=== PATIENT | male | born 1945 | race Caucasian/White ===

== ENCOUNTER 2016-12-30 15:40 | Inpatient (IN) | payer MEDICARE, MEDICAID ==
[2016-12-30 16:43] VITALS: BP 130/80
[2016-12-30 17:55] LABS: % EOSINOPHILS 3.1 % (0.0-5.0); % LYMPHOCYTES 15.6 % (20.0-50.0); % MONOCYTES 12.3 % (2.0-10.0); HEMATOCRIT 38.9 % (39.0-49.0); HEMOGLOBIN 13.6 gm/dL (12.6-17.4); MEAN CELL VOLUME 88.9 fl (80-99); MEAN CORPUSCULAR HGB CONC 34.9 pg (28.0-36.0); MEAN PLATELET VOLUME 7.3 fl; PLATELET COUNT 237 Th/cmm (150-400); RED BLOOD COUNT 4.38 Mil/cmm (3.80-5.80); RED CELL DISTRIBUTION WIDTH 13.7 % (11.5-20.0); WHITE BLOOD COUNT 6.1 Th/cmm (4.8-10.8)
[2016-12-30 18:05] LABS: ALB/GLOB RATIO 1.2 (1.0-1.8); ALKALINE PHOSPHATASE 68 U/L (34-104); ANION GAP 7.2 (7.0-16.0); BILIRUBIN,TOTAL 0.6 mg/dL (0.3-1.0); BUN - UREA NITROGEN 26 mg/dL (7-25); BUN/CREATININE RATIO 37.1; CALCIUM SERUM 9.4 mg/dL (8.6-10.3); CARBON DIOXIDE 27.9 mEq/L (21.0-31.0); CHLORIDE 103 mEq/L (98-107); CREATININE - SERUM 0.7 mg/dL (0.7-1.3); GLUCOSE 97 mg/dL (70-105); POTASSIUM SERUM 4.1 mEq/L (3.5-5.1); SGOT 21 U/L (13-39); SGPT/ALT 30 U/L (7-52); SODIUM SERUM 134 mEq/L (136-145)
[2016-12-30 19:37] LABS: URINE BILIRUBIN NEGATIVE (NEGATIVE); URINE COLOR STRAW; URINE GLUCOSE (UA) NEGATIVE (NEGATIVE); URINE KETONE NEGATIVE (NEGATIVE)
[2016-12-30 19:38] LABS: URINE BLOOD LARGE (NEGATIVE); URINE PH 7.5; URINE PROTEIN NEGATIVE (NEGATIVE); URINE RBC >100 /hpf (0-5); URINE UROBILINOGEN 0.2 E.U./dL (0.2 - 1.0)
[2016-12-30 19:39] LABS: URINE BACTERIA NONE SEEN /hpf (NONE SEEN); URINE EPITHELIAL CELLS FEW /lpf (FEW); URINE WBC 0-2 /hpf (0-5)
--- NOTE | 2016-12-30 20:52 | ED Physician Chart ---
Chief Complaint/HPI - Patient Information Date Seen:: 12/30/16 Time Seen:: 15:55 Chief Complaint:: abdominal pain History of Present Illness:: 71-year-old male with severe intellectual disability of presents with apparent acute, worsening, constant, abdominal pain that started about 1 day prior. Patient was brought to a CT scanner as an outpatient and was discovered that he has a large diaphragmatic hernia. History limited as patient has severe underlying intellectual handicap History provided by EMS Allergies:: Allergies Allergy/AdvReac Type Severity Reaction Status Date / Time No Known Allergies Allergy Verified 12/30/16 16:29 Vitals:: Vital Signs - 8 hr 12/30/16 12/30/16 12/30/16 16:42 18:36 19:25 Temp 97.7 F HR 74 73 RR 16 18 BP 130/80 132/74 124/82 O2 Sat % 97 97 Historian:: EMS Review:: Nurse's Note Reviewed, EMS run form Reviewed Review of Systems - Review of Systems Other: Complete system review otherwise unremarkable except as noted in HPI. Past Medical History - Past Medical History Past Medical History: Other (encephalopathy, nonverbal, profound intellectual disability) Family Medical History - Family Member Mother Hx Family Cancer: No Hx Family Coronary Artery Disease: No Hx Family Hypertension: No Hx Family Stroke: No Hx Family Seizures: No Hx Family AIDS: No Hx Family HIV: No Hx Family Hepatitis: No Physical Exam - Physical Examination Other:: INITIAL VITAL SIGNS: Reviewed by me GENERAL: Patient is lying on gurney, alert but averbal HEAD: Head is normocephalic. No evidence of trauma. No scalp or facial swelling EYES: No scleral icterus bilaterally ENT: Oropharynx is clear of exudate and erythema NECK: Supple. No meningismus. No masses. No evidence of trauma. No cervical spine bony step-offs or crepitus to palpation RESPIRATORY: No tachypnea. Clear to auscultation bilaterally. CV: Regular rate and rhythm. No murmurs, rubs, or gallops ABDOMEN: Soft, non-distended. No masses BACK: No ecchymoses. No evidence of trauma EXTREMITIES: Normal to inspection and palpation. No deformity SKIN: Warm and dry. No obvious rash. No jaundice NEUROLOGIC: Face is symmetric. Withdraws to pain in all extremities Labs/Radiology/EKG Results - Lab Results Results: Laboratory Tests 12/30/16 12/30/16 12/30/16 17:35 17:35 19:05 WBC 6.1 RBC 4.38 Hgb 13.6 Hct 38.9 L MCV 88.9 MCH 31.0 MCHC Differential 34.9 RDW 13.7 Plt Count 237 MPV 7.3 Neutrophils % 68.0 Lymphocytes % 15.6 L Monocytes % 12.3 H Eosinophils % 3.1 Basophils % 1.0 Sodium 134 L Potassium 4.1 Chloride 103 Carbon Dioxide 27.9 Anion Gap 7.2 BUN 26 H Creatinine 0.7 Est GFR ( Amer) > 60.0 Est GFR (Non-Af Amer) > 60.0 BUN/Creatinine Ratio 37.1 Glucose 97 Calcium 9.4 Total Bilirubin 0.6 AST 21 ALT 30 Alkaline Phosphatase 68 Total Protein 7.1 Albumin 3.9 L Globulin 3.2 Albumin/Globulin Ratio 1.2 Urine Source CES[place] Urine Color STRAW Urine Clarity HAZY Urine pH 7.5 Ur Specific [place] 1.015 Urine Protein NEGATIVE Urine Glucose (UA) NEGATIVE Urine Ketones NEGATIVE Urine Blood LARGE H Urine Nitrate NEGATIVE Urine Bilirubin NEGATIVE Urine Urobilinogen 0.2 Ur Leukocyte Esterase NEGATIVE Urine RBC >100 H Urine WBC 0-2 Ur Epithelial Cells FEW Urine Bacteria NONE SEEN ED Septic Shock - . Is Septic Shock (SBP<90, OR Lactate>4 mmol\L) present?: No - <6hrs of presentation: Vital Signs: Vital Signs - 8 hr 12/30/16 12/30/16 12/30/16 16:42 18:36 19:25 Temp 97.7 F HR 74 73 RR 16 18 BP 130/80 132/74 124/82 O2 Sat % 97 97 Reassessment (Disposition) - Reassessment Reassessment:: The patient's blood pressure was elevated (>120/80) but appears stable without evidence of hypertensive emergency or urgency. The patient was counseled about the risks hypertension urged to pursue outpatient monitoring and therapy within a week with her primary care physician. Patient has had apparent intractable abdominal pain. Because the patient is averbal and severely intellectually challenged it is difficult to obtain any reasonable history. Also very difficult to obtain a good clinical exam. Discussed the case in detail with Dr. Inman. He will admit the patient for further workup and treatment. Reassessment Condition:: Unchanged - Diagnosis Diagnosis:: Intractable abdominal pain Diaphragmatic hernia Encephalopathy Elevated blood pressure without diagnosis of hypertension - Patient Disposition Discharge/Transfer:: Acute Care w/in this hosp Admitted to:: Med/Surg Admitting Medical Physician:: Adrianne Inman Time:: 19:00 Condition at Disposition:: Improved ED Discharge Plan - Patient Disposition Admit/Discharge/Transfer: Acute Care w/in this hosp
--- NOTE | 2016-12-30 21:47 | Admit Criteria Form ---
Admit Criteria Forms - Admit Criteria Diagnosis: ABDOMINAL PAIN Clinical Indications for Admission to Inpatient Care (Place 'X' for any and all applicable criteria): Admission is indicated for ANY ONE of the following(1)(2)(3)(4)(5): [X]I. Inpatient admission required rather than observation care (Also use Abdominal Pain: Observation Care, as appropriate) because of ANY ONE of the following: [X]a) Severe pain requiring acute inpatient management [X]b) Identification of etiology/finding that requires inpatient care (eg, aortic dissection, free air) [ ]c) Absent bowel sounds with complete ileus(6) [ ]d) Suspected toxic megacolon [ ]e) Severe electrolyte abnormalities requiring inpatient care [ ]f) High fever or infection requiring inpatient admission as indicated by ANY ONE of following(7)(8): [ ] i) Appropriate outpatient or observational care antimicrobial treatment unavailable, not effective, or not feasible [ ] ii) Documented bacteremia [ ] iii) Temperature > 104.9 degrees F (oral) [ ] iv) T >103.1 F (oral) or < 96.8 F(rectal) that does not respond to all emergency treatment measures [ ]g) Signs of intestinal obstruction [B] [ ]h) Hemodynamic instability [ ]i) IV fluid to replace significant ongoing losses (greater than 3 L/m2 per day) (12)(13) [ ]j) Percutaneous or open drainage (eg, abscess, biliary tract ) procedures [ ]k) Parenteral nutrition regimen that must be implemented on inpatient basis [ ]l) Other condition,treatment or monitoring requiring inpatient admission. [ ]II. Peritoneal signs present [ ]III. Surgery needed that cannot be performed on an ambulatory basis. [ ]IV. Evaluation requires patient to not eat or drink for extended period ( eg, more than 24 hours). [ ]V. Contraindications and/or Inappropriate clinical situations for Observational Care in patients with abdominal pain, when ANY ONE of the following is required: [ ]a) Thorough evaluation is required to prevent catastrophic events due to delays in diagnosing (e.g.Mesenteric ischemia) 1,3 [ ]b) Patient with severe pathology or with chronic symptoms unlikely to improve in the ED stay (3) [ ]. General contraindications and/or Inappropriate clinical situations for Observational Care in patients with abdominal pain, when ANY ONE of the following is required: [ ]a) Prediction of prolongation of LOS based on ANY ONE of the following may be considered as a contraindication for observational care 2, 3, 4, 5, 6, 7, 8, 9, 10, 11 [ ]i) Age > 65 yrs. [ ]ii) Patient arriving by ambulance [ ]iii) Patient with high acuity [ ]iv) Patient requiring vital sign monitoring [ ]v) Patient on IV medication [ ]b) Systolic blood pressures 180mmHg 3,12 [ ]c) Patient with altered mental status including delirium and other alteration of consciousness, (3) [ ]d) Patient whose discharge disposition will be to a halfway home or rehabilitation home should not be managed in Emergency Department Observation Unit. CMS rule requires 3 days hospital stay before such placement.3,13 [ ]e) Patient with failure to thrive due to broad array of etiologies 3,16,17 [ ]f) Inability to ambulate 3,14 Extended stay beyond goal length of stay may be needed for(2)(3): [ ]a) Persistent abdominal pain with suspected intra-abdominal process [ ]b) Diagnosed condition requiring continued stay (e.g., pancreatitis, complicated diverticulitis) [ ]c) Surgery (e.g., colectomy) The original [employer] content created by [employer] has been revised. The portions of the content which have been revised are identified through the use of italic text or in bold, and [facility] has neither reviewed nor approved the modified material.All other unmodified content is copyright [facility]. Please see references footnoted in the original [facility] edition 2016 Admit Criteria Met?: Yes
[2016-12-31] MEDS: D5-0.45NS 1,000 ML IV SCH (05:53)
[2016-12-31] MEDS: Metoclopramide 5 mg/mL 2mL Vial IVP SCH ×2 (06:36→22:35)
[2016-12-31 07:59] LABS: HEMOGLOBIN 14.4 gm/dL (12.6-17.4); MEAN CELL VOLUME 89.9 fl (80-99); MEAN CORPUSCULAR HGB CONC 33.3 pg (28.0-36.0); MEAN PLATELET VOLUME 7.4 fl; PLATELET COUNT 213 Th/cmm (150-400); RED CELL DISTRIBUTION WIDTH 13.5 % (11.5-20.0)
[2016-12-31 08:04] LABS: HEMATOCRIT 43.1 % (39.0-49.0); WHITE BLOOD COUNT 9.7 Th/cmm (4.8-10.8)
[2016-12-31 08:17] LABS: INR 1.04 (0.5-1.4); PROTHROMBIN TIME (TEST) 10.3 SECONDS (9.5-11.5)
[2016-12-31 08:18] LABS: ALB/GLOB RATIO 1.1 (1.0-1.8); ALKALINE PHOSPHATASE 89 U/L (34-104); ANION GAP 7.7 (7.0-16.0); BILIRUBIN,TOTAL 1.3 mg/dL (0.3-1.0); BUN - UREA NITROGEN 19 mg/dL (7-25); CALCIUM SERUM 9.5 mg/dL (8.6-10.3); CARBON DIOXIDE 25.1 mEq/L (21.0-31.0); CHLORIDE 104 mEq/L (98-107); CREATININE - SERUM 0.5 mg/dL (0.7-1.3); GLUCOSE 93 mg/dL (70-105); MAGNESIUM 2.1 mg/dL (1.9-2.7); POTASSIUM SERUM 3.8 mEq/L (3.5-5.1); SGOT 23 U/L (13-39); SGPT/ALT 29 U/L (7-52); SODIUM SERUM 133 mEq/L (136-145)
[2016-12-31 09:19] LABS: BAND NEUTROPHILE 5 % (0-10); EOSINOPHIL 2 % (0-5); NEUTROPHILS 74 % (40-80); PLATELET ESTIMATE ADEQUATE (NORMAL); PLATELET MORPHOLOGY GIANT PLATELETS SEEN (NORMAL); TOTAL CELLS COUNTED 100
[2016-12-31] MEDS: Multivitamin w/ Minerals Tab PO SCH (09:39)
[2016-12-31] MEDS: Fish Oil 1,000 MG SGL PO SCH (09:39)
--- NOTE | 2016-12-31 12:00 | Diagnostic Imaging Report ---
CHEST X-RAY: AP view INDICATION: Pneumonia COMPARISON: None FINDINGS: Focal left midlung opacity is noted. There may be a hiatal hernia. Chronic lung changes are noted. No effusions. No definite pneumothorax. Heart size normal. Degenerative changes are noted with scoliosis. IMPRESSION: Focal left midlung opacity which may be due to atelectasis versus infiltrate. There may also be a hiatal hernia. Recommend short-term follow-up CT examination for further assessment of these findings. Final results were administered to the referring team on 12/31/2016.
[2016-12-31] MEDS ORDERED: Diatrizoate Meglumine/Diatri 30 mL Sol PO ONE (12:31)
--- NOTE | 2016-12-31 14:59 | History & Physical ---
CHIEF COMPLAINT: Intractable lower abdominal pain. HISTORY OF PRESENT ILLNESS: This is a 71-year-old male, resident of a [facility], with history of profound intellectual disability, spastic quadriplegia, chronic encephalopathy, BPH, legally blind, who was transferred to the ER secondary to intractable abdominal pain for the last days. The patient had a CT of the abdomen as an outpatient showing a large eventration versus hernia of the left hemidiaphragm continued in the stomach and multiple loops of small and large bowel. There is severe fecal retention of the colon with constipation. The patient now has been admitted to the medical floor for GI and surgical evals. The patient is non-conversive, but there is no reported fever, chills, nausea or vomiting. PAST MEDICAL HISTORY: As noted above. PAST SURGICAL HISTORY: Unknown, but there is no noted recent surgeries. FAMILY HISTORY: Unknown, but likely noncontributory. SOCIAL HISTORY: Per notes, no tobacco, ETOH, or illicit drug usage, lives in [facility]. ALLERGIES: NKDA. OUTPATIENT MEDICATIONS: Tylenol 325 q. 4 p.r.n. for pain, bisacodyl 10 mg suppository per rectum every day, Proscar 5 every day, multivitamins every day, omega-3 one capsule each day and Risperdal 0.5 b.i.d. REVIEW OF SYSTEMS: Not able to be obtained given the patient's mental condition. PHYSICAL EXAMINATION: VITAL SIGNS: Temperature 97.2, pulse 84, respirations 18, BP 146/82, satting 98% on room air. GENERAL: He is a well-nourished mentally disabled gentleman currently lying in bed in position. HEAD AND NECK: He is normocephalic, atraumatic. NECK: There is no JVD or LAD. CARDIOVASCULAR: Regular rate and rhythm. LUNGS: Decreased at the bases, but clear to auscultation bilaterally. ABDOMEN: He is mildly distended, somewhat rigid with mild tenderness to palpation diffusely, but more pronounced in the lower quadrants. There are hypoactive bowel sounds. LOWER EXTREMITIES: No pedal edema. LABORATORY DATA: Sodium 134, potassium 4.1, BUN 26 and albumin 3.9, otherwise LFTs and chemistries were within normal limits. INR is 1.04. White count 6.1, H and H 13/38. UA shows large blood and over 100 rbc's, but nitrite negative and leukocyte esterase negative. DIAGNOSTICS: Refer to HPI. IMPRESSION: 1. Intractable abdominal pain secondary to large diaphragmatic hernia. 2. Severe fecal impaction/retention and slight constipation. 3. Mild hyponatremia. 4. Azotemia 5. History of chronic encephalopathy secondary to mental retardation. 6. History of benign prostatic hypertrophy. PLAN: The patient has been admitted to the medical/surgical floor for further management and care. He has been placed on IV fluids and antiemetics as well as pain medications. GI and General Surgical eval had been asked for. He will be also placed on Protonix and Reglan IV and his medications will be held until his symptoms improved. [facility]# [id number]
--- NOTE | 2016-12-31 15:54 | Diagnostic Imaging Report ---
KUB History: Abdominal pain Comparison: None Findings: A percutaneous feeding tube is noted. Copious stool is seen throughout the colon with gaseous filled loops of bowel. Degenerative changes of the spine are noted. IMPRESSION: Copious amount of stool. Please correlate clinically for constipation.
[2016-12-31] MEDS ORDERED: Albuterol/Ipratropium Neb 3 ML AERS HHN PRN (16:45)
[2016-12-31] MEDS: Albuterol/Ipratropium Neb 3 ML AERS HHN SCH ×2 (19:38→23:28)
[2016-12-31] MEDS ORDERED: Magnesium Citrate 1.75 GM/300 mL Bottle PO ONE (20:23)
--- NOTE | 2016-12-31 21:59 | Consultation ---
GASTROENTEROLOGY CONSULTATION: REFERRING PHYSICIAN: Adrianne Inman M.D. REASON FOR CONSULTATION: Abdominal pain. HISTORY OF PRESENT ILLNESS: A 71-year-old male, mentally challenged, admitted for vague abdominal pain. He is a poor historian and further history was obtained from medical chart and computer records. There is a question of a previous large hiatal hernia in the past. The patient has no witnessed nausea or vomiting at this point. There was no reported diarrhea or constipation. PAST MEDICAL HISTORY: As above, notable for profound intellectual disability, spastic quadriplegia, chronic encephalopathy, BPH, legally blind. PAST MEDICAL HISTORY: As above. PAST SURGICAL HISTORY: Unknown. FAMILY HISTORY: Noncontributory. SOCIAL HISTORY: Board and care resident. No known tobacco, alcohol or drugs. ALLERGIES: None. MEDICATIONS: Here are Tylenol as needed, DuoNeb nebulizer as needed, azithromycin, Dulcolax as needed, Rocephin, Proscar, intravenous fluids, [place] 3, Ativan, Reglan 5 mg intravenous 4 times a day, intravenous Protonix and Risperdal. REVIEW OF SYSTEMS: As per History of Present Illness, otherwise unobtainable. PHYSICAL EXAMINATION: VITAL SIGNS: Temperature 97.5, blood pressure 141/79, pulse of 94, respirations 20. GENERAL: The patient is a well-developed, well-nourished male, in no acute distress. HEENT: Sclerae are nonicteric. Oropharynx is clear. CARDIOVASCULAR: Regular rate and rhythm. LUNGS: Clear to auscultation bilaterally. ABDOMEN: Soft, nontender, nondistended. Normoactive bowel sounds. EXTREMITIES: No clubbing, cyanosis or edema. RECTAL: Deferred. LABORATORY DATA AND IMAGING: Complete blood count is normal. Coagulation profile is normal. Chemistries are normal except for bilirubin mildly elevated to 1.3, albumin 3.9. Urinalysis shows large blood and greater than 100 rbc's. KUB shows copious stool. IMPRESSION: 1. Vague abdominal pain, unclear source, could be large hiatal hernia, could be constipation, could be a renal stone or renal colic given hematuria. 2. Hematuria, cause to be determined. 3. Mental retardation. RECOMMENDATIONS: 1. Upper endoscopy in the morning. 2. Protonix. 3. Check CT of the abdomen and pelvis. 4. Consider Urology evaluation for further evaluation of hematuria. Thank you, Dr. Inman, for involving us in the care of your patient. If you have any further questions, please call us. JOB# [id number]
[2017-01-01] MEDS: Albuterol/Ipratropium Neb 3 ML AERS HHN SCH ×6 (03:12→23:17)
[2017-01-01 06:42] LABS: % BASOPHILS 1.1 % (0.0-2.0); % EOSINOPHILS 0.2 % (0.0-5.0); % LYMPHOCYTES 10.3 % (20.0-50.0); % MONOCYTES 10.4 % (2.0-10.0); HEMATOCRIT 39.8 % (39.0-49.0); HEMOGLOBIN 13.7 gm/dL (12.6-17.4); MEAN CELL VOLUME 88.1 fl (80-99); MEAN CORPUSCULAR HEMOGLOBIN 30.4 pg (27.0-31.0); MEAN CORPUSCULAR HGB CONC 34.5 pg (28.0-36.0); MEAN PLATELET VOLUME 7.6 fl; NEUTROPHILE ABSOLUTE 5.1 Th/cmm (1.8-8.0); PLATELET COUNT 225 Th/cmm (150-400); RED BLOOD COUNT 4.52 Mil/cmm (3.80-5.80); RED CELL DISTRIBUTION WIDTH 13.6 % (11.5-20.0)
[2017-01-01 07:00] LABS: WHITE BLOOD COUNT 6.6 Th/cmm (4.8-10.8)
[2017-01-01 07:10] LABS: ANION GAP 15.3 (7.0-16.0); BUN - UREA NITROGEN 14 mg/dL (7-25); CALCIUM SERUM 9.5 mg/dL (8.6-10.3); CARBON DIOXIDE 26.7 mEq/L (21.0-31.0); CHLORIDE 95 mEq/L (98-107); CREATININE - SERUM 0.5 mg/dL (0.7-1.3); GLUCOSE 93 mg/dL (70-105); SODIUM SERUM 133 mEq/L (136-145)
[2017-01-01 08:09] LABS: INR 1.04 (0.5-1.4); PROTHROMBIN TIME (TEST) 10.3 SECONDS (9.5-11.5)
[2017-01-01] MEDS: Multivitamin w/ Minerals Tab PO SCH (09:16)
[2017-01-01] MEDS: Fish Oil 1,000 MG SGL PO SCH (09:16)
[2017-01-01] MEDS: Metoclopramide 5 mg/mL 2mL Vial IVP SCH ×5 (09:17→21:05)
--- NOTE | 2017-01-01 09:17 | Diagnostic Imaging Report ---
CHEST X-RAY: AP view INDICATION: pain COMPARISON: 12/30/2016 FINDINGS: There is probable large hiatal hernia. Increased bibasilar lung markings are noted. No focal consolidation. Heart size is normal. IMPRESSION: Probable large hiatal hernia. CT would provide additional detail and assessment Increased bibasilar lung markings favoring atelectasis. No focal consolidation is identified.
--- NOTE | 2017-01-01 13:04 | Operative Report ---
PROCEDURE: Esophagogastroduodenoscopy with biopsy. PREOPERATIVE DIAGNOSIS: Abdominal pain. POSTPROCEDURE DIAGNOSES: 1. Moderate to large 6 cm hiatal hernia. 2. Mild gastritis, status post biopsy and CLOtest. 3. Normal appearing duodenum, status post biopsy, rule out celiac disease. INDICATION: A 71-year-old mentally challenged male admitted for vague abdominal pain. KUB showed constipation and upper endoscopy is planned today for evaluation of peptic ulcer disease or possible hiatal hernia. CONSENT: Informed consent was obtained from the patient's conservator prior to procedure after explaining risks, benefits and alternatives including but not limited to infection, bleeding, perforation and . SEDATION: Monitored anesthesia care per Dr. Lebron. DESCRIPTION OF PROCEDURE AND FINDINGS: The procedure took place as an inpatient in the GI suite of [facility]. The patient was kept in the left lateral decubitus position. Adequate sedation was achieved by Dr. Lebron. An Olympus diagnostic upper endoscope was advanced via the patient's mouth and into the esophagus. The esophagus appeared normal with the Z line normal appearing at about 38-39 cm from the gums. A moderate to large hiatal hernia was then entered and the diaphragmatic pinch was at 44 cm from the gums. Retroflexion in the stomach confirmed the presence of a moderate to large hiatal hernia. No GE junction masses or varices were identified. Mild gastritis was identified in the antrum, but biopsies were obtained from antrum and mid body and submitted for CLOtest as well as pathology. The pyloric channel and duodenum up to second portion appeared normal. Random biopsies were obtained from second portion to rule out celiac disease. The scope was then withdrawn from the patient. The patient tolerated the procedure well. No complications are anticipated. RECOMMENDATIONS: 1. Follow up biopsy results. 2. Protonix. 3. Stool softeners. 4. Await CT of the abdomen and pelvis. 5. Diet as tolerated after CT imaging. Thank you, Dr. Adrianne Inman for involving us in the care of your patient. If any further questions, please call us. JOB# [id number] [facility]
--- NOTE | 2017-01-01 15:33 | Consultation ---
REFERRING PHYSICIAN: Dr. Inman. REASON FOR CONSULTATION: Abdominal pain. Thank you for referring this patient to me. HISTORY OF PRESENT ILLNESS: This is a 71-year-old male who comes in from the group home, but is unable to give any information, ____ is totally uncooperative and refuses to cooperate. Has history of mental disability, quadriplegia, chronic encephalopathy and is legally blind. Through the Emergency Room, it is noted that the patient apparently has hiatal hernia and may be the cause of his problems. There is no documented history of vomiting on this patient. LABORATORY STUDIES: The CBC is essentially normal. The chemistry, BUN slightly elevated to 26. The KUB shows copious amount of stool and otherwise no mention of chest opacity to indicate large portion of the stomach in the chest. PHYSICAL EXAMINATION: Right now is possible. GI evaluation is necessary with EGD to find out the extent of the hiatal hernia. Thank you for this consultation. We will follow with you. [facility]# [id number]
[2017-01-01] MEDS: D5-0.45NS 1,000 ML IV SCH ×2 (16:23→16:24)
[2017-01-02] MEDS: Albuterol/Ipratropium Neb 3 ML AERS HHN SCH ×6 (03:14→23:10)
[2017-01-02] MEDS: D5-0.45NS 1,000 ML IV SCH (05:21)
[2017-01-02 07:08] LABS: % BASOPHILS 0.4 % (0.0-2.0); % EOSINOPHILS 1.2 % (0.0-5.0); % MONOCYTES 11.7 % (2.0-10.0); % NEUTROPHILS 70.7 % (40.0-80.0); HEMATOCRIT 40.4 % (39.0-49.0); HEMOGLOBIN 13.8 gm/dL (12.6-17.4); MEAN CELL VOLUME 89.4 fl (80-99); MEAN CORPUSCULAR HEMOGLOBIN 30.5 pg (27.0-31.0); MEAN CORPUSCULAR HGB CONC 34.1 pg (28.0-36.0); NEUTROPHILE ABSOLUTE 4.3 Th/cmm (1.8-8.0); PLATELET COUNT 239 Th/cmm (150-400); RED BLOOD COUNT 4.52 Mil/cmm (3.80-5.80); RED CELL DISTRIBUTION WIDTH 13.6 % (11.5-20.0); WHITE BLOOD COUNT 6.1 Th/cmm (4.8-10.8)
[2017-01-02] MEDS: Metoclopramide 5 mg/mL 2mL Vial IVP SCH ×2 (07:11→11:21)
[2017-01-02 07:26] LABS: ANION GAP 10.3 (7.0-16.0); BUN - UREA NITROGEN 15 mg/dL (7-25); CALCIUM SERUM 9.2 mg/dL (8.6-10.3); CARBON DIOXIDE 25.5 mEq/L (21.0-31.0); CHLORIDE 101 mEq/L (98-107); CREATININE - SERUM 0.6 mg/dL (0.7-1.3); GLUCOSE 92 mg/dL (70-105); POTASSIUM SERUM 3.8 mEq/L (3.5-5.1); SODIUM SERUM 133 mEq/L (136-145)
[2017-01-02] MEDS: Multivitamin w/ Minerals Tab PO SCH (08:36)
[2017-01-02] MEDS: Fish Oil 1,000 MG SGL PO SCH (08:36)
--- NOTE | 2017-01-02 11:14 | Pathology Report ---
[id number] Collection Date: 01/01/2017 Surgeon: Dr. Cheri Forbes Specimen Description: 1: Duodenum biopsy. 2: Antrum biopsy. Gross Description: Part I: Received in formalin is a single marrero soft tissue fragment measuring 0.2 cm in greatest dimension. Totally submitted in one cassette labeled A. Gross Description: Part II: Received in formalin are three marrero soft tissue fragments ranging from 0.1 to 0.2 cm in greatest dimension. Totally submitted in one cassette labeled B. Microscopic Description: Part I: The histologic sections show duodenal mucosa with intact intestinal villi, with no evidence for any significant structural abnormalities. Diagnosis: Part I: No evidence for celiac disease / Sprue (duodenal biopsy). Microscopic Description: Part II: The histologic sections show gastric mucosa with mild chronic inflammation present consisting of lymphocytes and plasma cells. The Giemsa stain shows no evidence for Helicobacter Pylori. Diagnosis: Part II: 1. Mild chronic gastritis, antrum biopsy. 2. The Giemsa stain is negative for Helicobacter Pylori. [facility]# [id number] [facility]
--- NOTE | 2017-01-02 13:15 | Diagnostic Imaging Report ---
CT scan abdomen and pelvis without intravenous contrast HISTORY: Pain Total DLP equals 412 CTDI equals 8.5 Axial sections were obtained from the xiphoid process down to the pubic symphysis. Limited sections of the lower chest demonstrate elevation of the left hemidiaphragm. Air-filled mildly dilated large bowel extends into the left retrocardiac region. The lower most portion of the left chest is off the [id number]. The colon appears to be beneath the left hemidiaphragm. However, a dedicated CT scan of the chest would confirm. The liver exhibits a homogeneous parenchyma. No focal lesions. The spleen appears normal. No focal abnormality seen in the region of the pancreas. No focal renal lesions. The exam of the pelvis demonstrates preservation of normal fat planes. No abnormal soft tissue masses or abnormal fluid collections. Mildly dilated stool-filled large bowel suggesting changes of constipation noted. IMPRESSION: 1. Mildly dilated stool-filled large bowel suggesting changes associated with constipation 2. Elevation of the left hemidiaphragm. Air-filled large bowel projects and extends into the left retrocardiac region and appears to be beneath the diaphragm. This is partially off the [id number] of the exam. A dedicated CT scan of the chest would provide additional evaluation.
--- NOTE | 2017-01-02 13:21 | Diagnostic Imaging Report ---
Abdominal ultrasound (limited, gallbladder) HISTORY: Pain Limited images of the gallbladder provided. The exam is very limited due to patient's size, body habitus, bowel gas, and patient combativeness No definite intraluminal abnormalities are seen. Specifically, no definite calculi. There is suggestion of a small amount of pericholecystic fluid. Significance should be correlated clinically. IMPRESSION: 1. Very limited exam due to patient size, body habitus, bowel gas, and patient combativeness 2. No definite intraluminal abnormality/gallstones visualized. 3. Suggestion of minimal pericholecystic fluid. Significance should be correlated clinically.
[2017-01-02] MEDS ORDERED: Metoclopramide 5 mg/mL 2mL Vial IVP PRN (13:58)
--- NOTE | 2017-01-02 18:24 | General Progress Note ---
Subjective - Review of Systems Service Date: 01/02/17 Subjective: EVENTS NOTED. SULY ORAL DIET WELL. Objective - Results Result Diagrams: 01/02/17 06:46 01/02/17 06:46 Recent Labs: Laboratory Last Values WBC 6.1 Th/cmm (4.8-10.8) 01/02/17 06:46 RBC 4.52 Mil/cmm (3.80-5.80) 01/02/17 06:46 Hgb 13.8 gm/dL (12.6-17.4) 01/02/17 06:46 Hct 40.4 % (39.0-49.0) 01/02/17 06:46 MCV 89.4 fl (80-99) 01/02/17 06:46 MCH 30.5 pg (27.0-31.0) 01/02/17 06:46 MCHC Differential 34.1 pg (28.0-36.0) 01/02/17 06:46 RDW 13.6 % (11.5-20.0) 01/02/17 06:46 Plt Count 239 Th/cmm (150-400) 01/02/17 06:46 MPV 7.0 fl 01/02/17 06:46 Neutrophils % 70.7 % (40.0-80.0) 01/02/17 06:46 Band Neutrophils % 5 % (0-10) 12/31/16 07:45 Lymphocytes % 16.0 % (20.0-50.0) L 01/02/17 06:46 Monocytes % 11.7 % (2.0-10.0) H 01/02/17 06:46 Eosinophils % 1.2 % (0.0-5.0) 01/02/17 06:46 Basophils % 0.4 % (0.0-2.0) 01/02/17 06:46 Neutrophils (Manual) 74 % (40-80) 12/31/16 07:45 Lymphocytes 16 % (20-50) L 12/31/16 07:45 Monocytes 3 % (2-10) 12/31/16 07:45 Eosinophils 2 % (0-5) 12/31/16 07:45 Platelet Estimate ADEQUATE (NORMAL) 12/31/16 07:45 Platelet Morphology GIANT PLATELETS SEEN (NORMAL) 12/31/16 07:45 RBC Morph Micro Appear NORMAL (NORMAL) 12/31/16 07:45 PT 10.3 SECONDS (9.5-11.5) 01/01/17 06:04 INR 1.04 (0.5-1.4) 01/01/17 06:04 PTT (Actin FS) 27.2 SECONDS (26.0-38.0) 01/01/17 06:04 Sodium 133 mEq/L (136-145) L 01/02/17 06:46 Potassium 3.8 mEq/L (3.5-5.1) 01/02/17 06:46 Chloride 101 mEq/L (98-107) 01/02/17 06:46 Carbon Dioxide 25.5 mEq/L (21.0-31.0) 01/02/17 06:46 Anion Gap 10.3 (7.0-16.0) 01/02/17 06:46 BUN 15 mg/dL (7-25) 01/02/17 06:46 Creatinine 0.6 mg/dL (0.7-1.3) L 01/02/17 06:46 Est GFR ( Amer) > 60.0 ml/min (>90) 01/02/17 06:46 Est GFR (Non-Af Amer) > 60.0 ml/min 01/02/17 06:46 BUN/Creatinine Ratio 25.0 01/02/17 06:46 Glucose 92 mg/dL (70-105) 01/02/17 06:46 Calcium 9.2 mg/dL (8.6-10.3) 01/02/17 06:46 Magnesium 2.0 mg/dL (1.9-2.7) 01/01/17 06:04 Total Bilirubin 1.3 mg/dL (0.3-1.0) H 12/31/16 07:45 AST 23 U/L (13-39) 12/31/16 07:45 ALT 29 U/L (7-52) 12/31/16 07:45 Alkaline Phosphatase 89 U/L (34-104) 12/31/16 07:45 Total Protein 7.4 gm/dL (6.0-8.3) 12/31/16 07:45 Albumin 3.9 gm/dL (4.2-5.5) L 12/31/16 07:45 Globulin 3.5 gm/dL 12/31/16 07:45 Albumin/Globulin Ratio 1.1 (1.0-1.8) 12/31/16 07:45 Urine Source [place] 12/30/16 19:05 Urine Color STRAW 12/30/16 19:05 Urine Clarity HAZY (CLEAR) 12/30/16 19:05 Urine pH 7.5 12/30/16 19:05 Ur Specific [place] 1.015 (1.005-1.030) 12/30/16 19:05 Urine Protein NEGATIVE mg/dL (NEGATIVE) 12/30/16 19:05 Urine Glucose (UA) NEGATIVE mg/dL (NEGATIVE) 12/30/16 19:05 Urine Ketones NEGATIVE mg/dL (NEGATIVE) 12/30/16 19:05 Urine Blood LARGE (NEGATIVE) H 12/30/16 19:05 Urine Nitrate NEGATIVE (NEGATIVE) 12/30/16 19:05 Urine Bilirubin NEGATIVE (NEGATIVE) 12/30/16 19:05 Urine Urobilinogen 0.2 E.U./dL (0.2 - 1.0) 12/30/16 19:05 Ur Leukocyte Esterase NEGATIVE (NEGATIVE) 12/30/16 19:05 Urine RBC >100 /hpf (0-5) H 12/30/16 19:05 Urine WBC 0-2 /hpf (0-5) 12/30/16 19:05 Ur Epithelial Cells FEW /lpf (FEW) 12/30/16 19:05 Urine Bacteria NONE SEEN /hpf (NONE SEEN) 12/30/16 19:05 Helicobacter pylori Ab NEGATIVE (NEGATIVE) 01/01/17 12:00 - Physical Exam Vitals and I&O: Vital Signs Temp 98 F 01/02/17 16:00 Pulse 75 01/02/17 16:00 Resp 19 01/02/17 16:00 BP 135/73 01/02/17 16:00 Pulse Ox 94 01/02/17 16:00 Intake & Output 01/01/17 01/02/17 01/02/17 18:59 06:59 18:59 Intake Total 1.167 1026.5 600 Balance 1.167 1026.5 600 Intake: Intake, IV Amount 1.167 906.5 D5-0.45NS 1,000 ml @ 70 1.167 906.5 mls/hr IV .[id number] [facility] Rx #:[id number] Oral 120 600 Other: # Voids 3 4 # Bowel Movements 1 Active Medications: Current Medications Acetaminophen (Tylenol) 325 mg PO Q4HR PRN PRN Reason: Pain (Mild) Stop: 03/01/17 02:11 Albuterol/Ipratropium (Duoneb Neb) 3 ml HHN Q4HRT [facility] Stop: 03/01/17 18:59 Last Admin: 01/02/17 17:15 Dose: Not Given Albuterol/Ipratropium (Duoneb Neb) 3 ml HHN Q4H PRN PRN Reason: Wheezing Stop: 03/01/17 16:44 Bisacodyl (Dulcolax 10 Mg Supp) 10 mg RC DAILY PRN PRN Reason: Constipation Stop: 03/01/17 02:11 Finasteride (Proscar) 5 mg PO DAILY [facility] PRN Reason: Protocol Stop: 03/01/17 08:59 Last Admin: 01/02/17 08:36 Dose: 5 mg Fish Oil ([place] 3) 1,000 mg PO DAILY [facility] Stop: 03/01/17 08:59 Last Admin: 01/02/17 08:36 Dose: 1,000 mg Dextrose/Sodium Chloride (D5-0.45ns) 1,000 mls @ 70 mls/hr IV .[id number] [facility] Stop: 03/01/17 02:11 Last Admin: 01/02/17 05:21 Dose: 70 mls/hr Azithromycin 500 mg/ Sodium (Chloride) 250 mls @ 250 mls/hr IV Q24HR [facility] Stop: 03/01/17 13:59 Ceftriaxone Sodium 1 gm/ (Sodium Chloride) 100 mls @ 100 mls/hr IV Q24HR [facility] Stop: 03/01/17 13:59 Lorazepam (Ativan) 1 mg IVP Q2HR PRN; Protocol PRN Reason: Agitation Stop: 03/01/17 13:17 Last Admin: 01/02/17 11:21 Dose: 1 mg Metoclopramide HCl (Reglan) 5 mg IVP Q4HR PRN PRN Reason: Nausea / Vomiting Stop: 03/03/17 13:57 Pantoprazole Sodium (Protonix) 40 mg IVP Q24H [facility] Stop: 03/01/17 02:11 Last Admin: 01/02/17 04:57 Dose: 40 mg Risperidone (Risperdal) 0.5 mg PO BID [facility] PRN Reason: Protocol Stop: 03/01/17 08:59 Last Admin: 01/02/17 16:19 Dose: 0.5 mg General: No acute distress HEENT: Atraumatic Neck: Supple Cardiovascular: Regular rate Lungs: Clear to auscultation Abdomen: Bowel sounds, Soft, no Tender Assessment/Plan - Assessment Assessment: 1. ABD PAIN, NOW IMPROVED. 2. GERD WITH LARGE HIATAL HERNIA AND GASTRITIS PER EGD. 3. CONSTIPATION - PER CT. 4. HX MR. - Plan Plan: 1. PROTONIX. 2. REGLAN. 3. COLACE. 4. DIET SULY.
[2017-01-03] MEDS: Albuterol/Ipratropium Neb 3 ML AERS HHN SCH ×6 (03:06→22:56)
[2017-01-03] MEDS: D5-0.45NS 1,000 ML IV SCH ×4 (03:44→18:10)
[2017-01-03 07:11] LABS: % EOSINOPHILS 2.4 % (0.0-5.0); % LYMPHOCYTES 21.5 % (20.0-50.0); % MONOCYTES 12.6 % (2.0-10.0); % NEUTROPHILS 62.5 % (40.0-80.0); HEMATOCRIT 42.2 % (39.0-49.0); HEMOGLOBIN 14.1 gm/dL (12.6-17.4); MEAN CELL VOLUME 88.5 fl (80-99); MEAN CORPUSCULAR HEMOGLOBIN 29.6 pg (27.0-31.0); MEAN CORPUSCULAR HGB CONC 33.5 pg (28.0-36.0); MEAN PLATELET VOLUME 7.4 fl; NEUTROPHILE ABSOLUTE 3.2 Th/cmm (1.8-8.0); PLATELET COUNT 261 Th/cmm (150-400); RED BLOOD COUNT 4.77 Mil/cmm (3.80-5.80); RED CELL DISTRIBUTION WIDTH 13.3 % (11.5-20.0); WHITE BLOOD COUNT 5.1 Th/cmm (4.8-10.8)
[2017-01-03 07:48] LABS: ANION GAP 7.3 (7.0-16.0); BUN - UREA NITROGEN 12 mg/dL (7-25); CALCIUM SERUM 9.4 mg/dL (8.6-10.3); CARBON DIOXIDE 26.3 mEq/L (21.0-31.0); CHLORIDE 103 mEq/L (98-107); CREATININE - SERUM 0.5 mg/dL (0.7-1.3); GLUCOSE 93 mg/dL (70-105); POTASSIUM SERUM 3.6 mEq/L (3.5-5.1); SODIUM SERUM 133 mEq/L (136-145)
--- NOTE | 2017-01-03 08:12 | General Progress Note ---
Subjective - Review of Systems Service Date: 01/03/17 Subjective: EVENTS NOTED. SULY ORAL DIET WELL. Objective - Results Result Diagrams: 01/03/17 06:13 01/03/17 06:13 Recent Labs: Laboratory Last Values WBC 5.1 Th/cmm (4.8-10.8) 01/03/17 06:13 RBC 4.77 Mil/cmm (3.80-5.80) 01/03/17 06:13 Hgb 14.1 gm/dL (12.6-17.4) 01/03/17 06:13 Hct 42.2 % (39.0-49.0) 01/03/17 06:13 MCV 88.5 fl (80-99) 01/03/17 06:13 MCH 29.6 pg (27.0-31.0) 01/03/17 06:13 MCHC Differential 33.5 pg (28.0-36.0) 01/03/17 06:13 RDW 13.3 % (11.5-20.0) 01/03/17 06:13 Plt Count 261 Th/cmm (150-400) 01/03/17 06:13 MPV 7.4 fl 01/03/17 06:13 Neutrophils % 62.5 % (40.0-80.0) 01/03/17 06:13 Band Neutrophils % 5 % (0-10) 12/31/16 07:45 Lymphocytes % 21.5 % (20.0-50.0) 01/03/17 06:13 Monocytes % 12.6 % (2.0-10.0) H 01/03/17 06:13 Eosinophils % 2.4 % (0.0-5.0) 01/03/17 06:13 Basophils % 1.0 % (0.0-2.0) 01/03/17 06:13 Neutrophils (Manual) 74 % (40-80) 12/31/16 07:45 Lymphocytes 16 % (20-50) L 12/31/16 07:45 Monocytes 3 % (2-10) 12/31/16 07:45 Eosinophils 2 % (0-5) 12/31/16 07:45 Platelet Estimate ADEQUATE (NORMAL) 12/31/16 07:45 Platelet Morphology GIANT PLATELETS SEEN (NORMAL) 12/31/16 07:45 RBC Morph Micro Appear NORMAL (NORMAL) 12/31/16 07:45 PT 10.3 SECONDS (9.5-11.5) 01/01/17 06:04 INR 1.04 (0.5-1.4) 01/01/17 06:04 PTT (Actin FS) 27.2 SECONDS (26.0-38.0) 01/01/17 06:04 Sodium 133 mEq/L (136-145) L 01/03/17 06:13 Potassium 3.6 mEq/L (3.5-5.1) 01/03/17 06:13 Chloride 103 mEq/L (98-107) 01/03/17 06:13 Carbon Dioxide 26.3 mEq/L (21.0-31.0) 01/03/17 06:13 Anion Gap 7.3 (7.0-16.0) 01/03/17 06:13 BUN 12 mg/dL (7-25) 01/03/17 06:13 Creatinine 0.5 mg/dL (0.7-1.3) L 01/03/17 06:13 Est GFR ( Amer) > 60.0 ml/min (>90) 01/03/17 06:13 Est GFR (Non-Af Amer) > 60.0 ml/min 01/03/17 06:13 BUN/Creatinine Ratio 24.0 01/03/17 06:13 Glucose 93 mg/dL (70-105) 01/03/17 06:13 Calcium 9.4 mg/dL (8.6-10.3) 01/03/17 06:13 Magnesium 2.0 mg/dL (1.9-2.7) 01/01/17 06:04 Total Bilirubin 1.3 mg/dL (0.3-1.0) H 12/31/16 07:45 AST 23 U/L (13-39) 12/31/16 07:45 ALT 29 U/L (7-52) 12/31/16 07:45 Alkaline Phosphatase 89 U/L (34-104) 12/31/16 07:45 Total Protein 7.4 gm/dL (6.0-8.3) 12/31/16 07:45 Albumin 3.9 gm/dL (4.2-5.5) L 12/31/16 07:45 Globulin 3.5 gm/dL 12/31/16 07:45 Albumin/Globulin Ratio 1.1 (1.0-1.8) 12/31/16 07:45 Urine Source [place] 12/30/16 19:05 Urine Color STRAW 12/30/16 19:05 Urine Clarity HAZY (CLEAR) 12/30/16 19:05 Urine pH 7.5 12/30/16 19:05 Ur Specific [place] 1.015 (1.005-1.030) 12/30/16 19:05 Urine Protein NEGATIVE mg/dL (NEGATIVE) 12/30/16 19:05 Urine Glucose (UA) NEGATIVE mg/dL (NEGATIVE) 12/30/16 19:05 Urine Ketones NEGATIVE mg/dL (NEGATIVE) 12/30/16 19:05 Urine Blood LARGE (NEGATIVE) H 12/30/16 19:05 Urine Nitrate NEGATIVE (NEGATIVE) 12/30/16 19:05 Urine Bilirubin NEGATIVE (NEGATIVE) 12/30/16 19:05 Urine Urobilinogen 0.2 E.U./dL (0.2 - 1.0) 12/30/16 19:05 Ur Leukocyte Esterase NEGATIVE (NEGATIVE) 12/30/16 19:05 Urine RBC >100 /hpf (0-5) H 12/30/16 19:05 Urine WBC 0-2 /hpf (0-5) 12/30/16 19:05 Ur Epithelial Cells FEW /lpf (FEW) 12/30/16 19:05 Urine Bacteria NONE SEEN /hpf (NONE SEEN) 12/30/16 19:05 Helicobacter pylori Ab NEGATIVE (NEGATIVE) 01/01/17 12:00 - Physical Exam Vitals and I&O: Vital Signs Temp 98.0 F 01/03/17 06:00 Pulse 86 01/03/17 04:00 Resp 18 01/03/17 04:00 BP 144/97 01/03/17 04:00 Pulse Ox 95 01/03/17 04:00 Intake & Output 01/02/17 01/03/17 01/03/17 18:59 06:59 18:59 Intake Total 600 1240 Balance 600 1240 Intake: Intake, IV Amount 1000 D5-0.45NS 1,000 ml @ 70 1000 mls/hr IV .[id number] [facility] Rx #:[id number] Oral 600 240 Other: # Voids 4 3 # Bowel Movements 1 Stool Characteristics Hard Active Medications: Current Medications Acetaminophen (Tylenol) 325 mg PO Q4HR PRN PRN Reason: Pain (Mild) Stop: 03/01/17 02:11 Albuterol/Ipratropium (Duoneb Neb) 3 ml HHN Q4HRT [facility] Stop: 03/01/17 18:59 Last Admin: 01/03/17 08:01 Dose: 3 ml Albuterol/Ipratropium (Duoneb Neb) 3 ml HHN Q4H PRN PRN Reason: Wheezing Stop: 03/01/17 16:44 Bisacodyl (Dulcolax 10 Mg Supp) 10 mg RC DAILY PRN PRN Reason: Constipation Stop: 03/01/17 02:11 Docusate Sodium (Colace) 100 mg PO BID [facility] Stop: 03/04/17 08:59 Finasteride (Proscar) 5 mg PO DAILY [facility] PRN Reason: Protocol Stop: 03/01/17 08:59 Last Admin: 01/02/17 08:36 Dose: 5 mg Fish Oil ([place] 3) 1,000 mg PO DAILY [facility] Stop: 03/01/17 08:59 Last Admin: 01/02/17 08:36 Dose: 1,000 mg Dextrose/Sodium Chloride (D5-0.45ns) 1,000 mls @ 70 mls/hr IV .[id number] [facility] Stop: 03/01/17 02:11 Last Admin: 01/03/17 03:44 Dose: 70 mls/hr Azithromycin 500 mg/ Sodium (Chloride) 250 mls @ 250 mls/hr IV Q24HR [facility] Stop: 03/01/17 13:59 Ceftriaxone Sodium 1 gm/ (Sodium Chloride) 100 mls @ 100 mls/hr IV Q24HR [facility] Stop: 03/01/17 13:59 Lorazepam (Ativan) 1 mg IVP Q2HR PRN; Protocol PRN Reason: Agitation Stop: 03/01/17 13:17 Last Admin: 01/03/17 03:18 Dose: 1 mg Metoclopramide HCl (Reglan) 5 mg IVP Q4HR PRN PRN Reason: Nausea / Vomiting Stop: 03/03/17 13:57 Pantoprazole Sodium (Protonix) 40 mg IVP Q24H [facility] Stop: 03/01/17 02:11 Last Admin: 01/03/17 03:18 Dose: 40 mg Risperidone (Risperdal) 0.5 mg PO BID [facility] PRN Reason: Protocol Stop: 03/01/17 08:59 Last Admin: 01/02/17 16:19 Dose: 0.5 mg General: Cooperative, No acute distress HEENT: Atraumatic Neck: Supple Cardiovascular: Regular rate Lungs: Clear to auscultation Abdomen: Bowel sounds, Soft, no Tender Assessment/Plan - Assessment Assessment: 1. ABD PAIN, NOW IMPROVED. 2. GERD WITH LARGE HIATAL HERNIA AND GASTRITIS PER EGD. 3. CONSTIPATION - PER CT. 4. HX MR. - Plan Plan: 1. PROTONIX. 2. REGLAN. 3. COLACE. 4. DIET SULY.
[2017-01-03] MEDS: Azithromycin 500 MG in Sodium Chloride 0.9% 250 ML IV SCH ×3 (08:22→14:07)
[2017-01-03] MEDS: cefTRIAXone 1 GM in Sodium Chloride 0.9% 100 ML IV SCH ×3 (08:23→13:30)
--- NOTE | 2017-01-03 09:49 | General Progress Note ---
Subjective - Review of Systems Service Date: 01/03/17 Events since last encounter: discussed with Dr. Inman - per EGD, hernia does not appear to be large to require surgical intervention no history of vomiting documented patient unreliable for info Objective - Results Result Diagrams: 01/03/17 06:13 01/03/17 06:13 Recent Labs: Laboratory Last Values WBC 5.1 Th/cmm (4.8-10.8) 01/03/17 06:13 RBC 4.77 Mil/cmm (3.80-5.80) 01/03/17 06:13 Hgb 14.1 gm/dL (12.6-17.4) 01/03/17 06:13 Hct 42.2 % (39.0-49.0) 01/03/17 06:13 MCV 88.5 fl (80-99) 01/03/17 06:13 MCH 29.6 pg (27.0-31.0) 01/03/17 06:13 MCHC Differential 33.5 pg (28.0-36.0) 01/03/17 06:13 RDW 13.3 % (11.5-20.0) 01/03/17 06:13 Plt Count 261 Th/cmm (150-400) 01/03/17 06:13 MPV 7.4 fl 01/03/17 06:13 Neutrophils % 62.5 % (40.0-80.0) 01/03/17 06:13 Band Neutrophils % 5 % (0-10) 12/31/16 07:45 Lymphocytes % 21.5 % (20.0-50.0) 01/03/17 06:13 Monocytes % 12.6 % (2.0-10.0) H 01/03/17 06:13 Eosinophils % 2.4 % (0.0-5.0) 01/03/17 06:13 Basophils % 1.0 % (0.0-2.0) 01/03/17 06:13 Neutrophils (Manual) 74 % (40-80) 12/31/16 07:45 Lymphocytes 16 % (20-50) L 12/31/16 07:45 Monocytes 3 % (2-10) 12/31/16 07:45 Eosinophils 2 % (0-5) 12/31/16 07:45 Platelet Estimate ADEQUATE (NORMAL) 12/31/16 07:45 Platelet Morphology GIANT PLATELETS SEEN (NORMAL) 12/31/16 07:45 RBC Morph Micro Appear NORMAL (NORMAL) 12/31/16 07:45 PT 10.3 SECONDS (9.5-11.5) 01/01/17 06:04 INR 1.04 (0.5-1.4) 01/01/17 06:04 PTT (Actin FS) 27.2 SECONDS (26.0-38.0) 01/01/17 06:04 Sodium 133 mEq/L (136-145) L 01/03/17 06:13 Potassium 3.6 mEq/L (3.5-5.1) 01/03/17 06:13 Chloride 103 mEq/L (98-107) 01/03/17 06:13 Carbon Dioxide 26.3 mEq/L (21.0-31.0) 01/03/17 06:13 Anion Gap 7.3 (7.0-16.0) 01/03/17 06:13 BUN 12 mg/dL (7-25) 01/03/17 06:13 Creatinine 0.5 mg/dL (0.7-1.3) L 01/03/17 06:13 Est GFR ( Amer) > 60.0 ml/min (>90) 01/03/17 06:13 Est GFR (Non-Af Amer) > 60.0 ml/min 01/03/17 06:13 BUN/Creatinine Ratio 24.0 01/03/17 06:13 Glucose 93 mg/dL (70-105) 01/03/17 06:13 Calcium 9.4 mg/dL (8.6-10.3) 01/03/17 06:13 Magnesium 2.0 mg/dL (1.9-2.7) 01/01/17 06:04 Total Bilirubin 1.3 mg/dL (0.3-1.0) H 12/31/16 07:45 AST 23 U/L (13-39) 12/31/16 07:45 ALT 29 U/L (7-52) 12/31/16 07:45 Alkaline Phosphatase 89 U/L (34-104) 12/31/16 07:45 Total Protein 7.4 gm/dL (6.0-8.3) 12/31/16 07:45 Albumin 3.9 gm/dL (4.2-5.5) L 12/31/16 07:45 Globulin 3.5 gm/dL 12/31/16 07:45 Albumin/Globulin Ratio 1.1 (1.0-1.8) 12/31/16 07:45 Urine Source [place] 12/30/16 19:05 Urine Color STRAW 12/30/16 19:05 Urine Clarity HAZY (CLEAR) 12/30/16 19:05 Urine pH 7.5 12/30/16 19:05 Ur Specific [place] 1.015 (1.005-1.030) 12/30/16 19:05 Urine Protein NEGATIVE mg/dL (NEGATIVE) 12/30/16 19:05 Urine Glucose (UA) NEGATIVE mg/dL (NEGATIVE) 12/30/16 19:05 Urine Ketones NEGATIVE mg/dL (NEGATIVE) 12/30/16 19:05 Urine Blood LARGE (NEGATIVE) H 12/30/16 19:05 Urine Nitrate NEGATIVE (NEGATIVE) 12/30/16 19:05 Urine Bilirubin NEGATIVE (NEGATIVE) 12/30/16 19:05 Urine Urobilinogen 0.2 E.U./dL (0.2 - 1.0) 12/30/16 19:05 Ur Leukocyte Esterase NEGATIVE (NEGATIVE) 12/30/16 19:05 Urine RBC >100 /hpf (0-5) H 12/30/16 19:05 Urine WBC 0-2 /hpf (0-5) 12/30/16 19:05 Ur Epithelial Cells FEW /lpf (FEW) 12/30/16 19:05 Urine Bacteria NONE SEEN /hpf (NONE SEEN) 12/30/16 19:05 Helicobacter pylori Ab NEGATIVE (NEGATIVE) 01/01/17 12:00 - Physical Exam Vitals and I&O: Vital Signs Temp 98.0 F 01/03/17 06:00 Pulse 86 01/03/17 04:00 Resp 18 01/03/17 04:00 BP 144/97 01/03/17 04:00 Pulse Ox 95 01/03/17 04:00 Intake & Output 01/02/17 01/03/17 01/03/17 18:59 06:59 18:59 Intake Total 600 1240 Balance 600 1240 Intake: Intake, IV Amount 1000 D5-0.45NS 1,000 ml @ 70 1000 mls/hr IV .[id number] [facility] Rx #:[id number] Oral 600 240 Other: # Voids 4 3 # Bowel Movements 1 Stool Characteristics Hard Active Medications: Current Medications Acetaminophen (Tylenol) 325 mg PO Q4HR PRN PRN Reason: Pain (Mild) Stop: 03/01/17 02:11 Albuterol/Ipratropium (Duoneb Neb) 3 ml HHN Q4HRT [facility] Stop: 03/01/17 18:59 Last Admin: 01/03/17 08:01 Dose: 3 ml Albuterol/Ipratropium (Duoneb Neb) 3 ml HHN Q4H PRN PRN Reason: Wheezing Stop: 03/01/17 16:44 Bisacodyl (Dulcolax 10 Mg Supp) 10 mg RC DAILY PRN PRN Reason: Constipation Stop: 03/01/17 02:11 Docusate Sodium (Colace) 100 mg PO BID [facility] Stop: 03/04/17 08:59 Finasteride (Proscar) 5 mg PO DAILY [facility] PRN Reason: Protocol Stop: 03/01/17 08:59 Last Admin: 01/02/17 08:36 Dose: 5 mg Fish Oil ([place] 3) 1,000 mg PO DAILY [facility] Stop: 03/01/17 08:59 Last Admin: 01/02/17 08:36 Dose: 1,000 mg Dextrose/Sodium Chloride (D5-0.45ns) 1,000 mls @ 70 mls/hr IV .[id number] [facility] Stop: 03/01/17 02:11 Last Admin: 01/03/17 08:25 Dose: Not Given Azithromycin 500 mg/ Sodium (Chloride) 250 mls @ 250 mls/hr IV Q24HR [facility] Stop: 03/01/17 13:59 Last Admin: 01/03/17 08:24 Dose: Not Given Ceftriaxone Sodium 1 gm/ (Sodium Chloride) 100 mls @ 100 mls/hr IV Q24HR [facility] Stop: 03/01/17 13:59 Last Admin: 01/03/17 08:24 Dose: Not Given Lorazepam (Ativan) 1 mg IVP Q2HR PRN; Protocol PRN Reason: Agitation Stop: 03/01/17 13:17 Last Admin: 01/03/17 03:18 Dose: 1 mg Metoclopramide HCl (Reglan) 5 mg IVP Q4HR PRN PRN Reason: Nausea / Vomiting Stop: 03/03/17 13:57 Pantoprazole Sodium (Protonix) 40 mg IVP Q24H [facility] Stop: 03/01/17 02:11 Last Admin: 01/03/17 03:18 Dose: 40 mg Risperidone (Risperdal) 0.5 mg PO BID [facility] PRN Reason: Protocol Stop: 03/01/17 08:59 Last Admin: 01/02/17 16:19 Dose: 0.5 mg
[2017-01-03] MEDS: Multivitamin w/ Minerals Tab PO SCH (09:55)
[2017-01-03] MEDS: Fish Oil 1,000 MG SGL PO SCH (09:55)
[2017-01-04] MEDS: Albuterol/Ipratropium Neb 3 ML AERS HHN SCH ×6 (02:51→23:18)
[2017-01-04] MEDS: D5-0.45NS 1,000 ML IV SCH (07:44)
[2017-01-04] MEDS: Multivitamin w/ Minerals Tab PO SCH (08:44)
[2017-01-04] MEDS: Fish Oil 1,000 MG SGL PO SCH (08:44)
--- NOTE | 2017-01-04 09:59 | Diagnostic Imaging Report ---
Portable chest x-ray HISTORY: Shortness of breath Compared with the prior exam of October 31, 2017, there has developed increased density in the left lower hemithorax with obscuration the left hemidiaphragm. Patient is rotated. Findings may be associated with consolidation and/or atelectasis. A pleural effusion cannot be excluded. IMPRESSION: 1. Increased density left lower hemithorax with obscuration of the left hemidiaphragm. The findings may be associated with atelectasis and/or consolidation. Left pleural effusion cannot be ruled out.
[2017-01-04] MEDS: cefTRIAXone 1 GM in Sodium Chloride 0.9% 100 ML IV SCH (13:52)
[2017-01-04] MEDS: Azithromycin 500 MG in Sodium Chloride 0.9% 250 ML IV SCH (15:11)
--- NOTE | 2017-01-04 20:25 | General Progress Note ---
Subjective - Review of Systems Service Date: 01/04/17 Subjective: EVENTS NOTED. SULY ORAL DIET WELL. Objective - Results Result Diagrams: 01/03/17 06:13 01/03/17 06:13 Recent Labs: Laboratory Last Values WBC 5.1 Th/cmm (4.8-10.8) 01/03/17 06:13 RBC 4.77 Mil/cmm (3.80-5.80) 01/03/17 06:13 Hgb 14.1 gm/dL (12.6-17.4) 01/03/17 06:13 Hct 42.2 % (39.0-49.0) 01/03/17 06:13 MCV 88.5 fl (80-99) 01/03/17 06:13 MCH 29.6 pg (27.0-31.0) 01/03/17 06:13 MCHC Differential 33.5 pg (28.0-36.0) 01/03/17 06:13 RDW 13.3 % (11.5-20.0) 01/03/17 06:13 Plt Count 261 Th/cmm (150-400) 01/03/17 06:13 MPV 7.4 fl 01/03/17 06:13 Neutrophils % 62.5 % (40.0-80.0) 01/03/17 06:13 Band Neutrophils % 5 % (0-10) 12/31/16 07:45 Lymphocytes % 21.5 % (20.0-50.0) 01/03/17 06:13 Monocytes % 12.6 % (2.0-10.0) H 01/03/17 06:13 Eosinophils % 2.4 % (0.0-5.0) 01/03/17 06:13 Basophils % 1.0 % (0.0-2.0) 01/03/17 06:13 Neutrophils (Manual) 74 % (40-80) 12/31/16 07:45 Lymphocytes 16 % (20-50) L 12/31/16 07:45 Monocytes 3 % (2-10) 12/31/16 07:45 Eosinophils 2 % (0-5) 12/31/16 07:45 Platelet Estimate ADEQUATE (NORMAL) 12/31/16 07:45 Platelet Morphology GIANT PLATELETS SEEN (NORMAL) 12/31/16 07:45 RBC Morph Micro Appear NORMAL (NORMAL) 12/31/16 07:45 PT 10.3 SECONDS (9.5-11.5) 01/01/17 06:04 INR 1.04 (0.5-1.4) 01/01/17 06:04 PTT (Actin FS) 27.2 SECONDS (26.0-38.0) 01/01/17 06:04 Sodium 133 mEq/L (136-145) L 01/03/17 06:13 Potassium 3.6 mEq/L (3.5-5.1) 01/03/17 06:13 Chloride 103 mEq/L (98-107) 01/03/17 06:13 Carbon Dioxide 26.3 mEq/L (21.0-31.0) 01/03/17 06:13 Anion Gap 7.3 (7.0-16.0) 01/03/17 06:13 BUN 12 mg/dL (7-25) 01/03/17 06:13 Creatinine 0.5 mg/dL (0.7-1.3) L 01/03/17 06:13 Est GFR ( Amer) > 60.0 ml/min (>90) 01/03/17 06:13 Est GFR (Non-Af Amer) > 60.0 ml/min 01/03/17 06:13 BUN/Creatinine Ratio 24.0 01/03/17 06:13 Glucose 93 mg/dL (70-105) 01/03/17 06:13 Calcium 9.4 mg/dL (8.6-10.3) 01/03/17 06:13 Magnesium 2.0 mg/dL (1.9-2.7) 01/01/17 06:04 Total Bilirubin 1.3 mg/dL (0.3-1.0) H 12/31/16 07:45 AST 23 U/L (13-39) 12/31/16 07:45 ALT 29 U/L (7-52) 12/31/16 07:45 Alkaline Phosphatase 89 U/L (34-104) 12/31/16 07:45 Total Protein 7.4 gm/dL (6.0-8.3) 12/31/16 07:45 Albumin 3.9 gm/dL (4.2-5.5) L 12/31/16 07:45 Globulin 3.5 gm/dL 12/31/16 07:45 Albumin/Globulin Ratio 1.1 (1.0-1.8) 12/31/16 07:45 Urine Source CESAR PORT 12/30/16 19:05 Urine Color STRAW 12/30/16 19:05 Urine Clarity HAZY (CLEAR) 12/30/16 19:05 Urine pH 7.5 12/30/16 19:05 Ur Specific [place] 1.015 (1.005-1.030) 12/30/16 19:05 Urine Protein NEGATIVE mg/dL (NEGATIVE) 12/30/16 19:05 Urine Glucose (UA) NEGATIVE mg/dL (NEGATIVE) 12/30/16 19:05 Urine Ketones NEGATIVE mg/dL (NEGATIVE) 12/30/16 19:05 Urine Blood LARGE (NEGATIVE) H 12/30/16 19:05 Urine Nitrate NEGATIVE (NEGATIVE) 12/30/16 19:05 Urine Bilirubin NEGATIVE (NEGATIVE) 12/30/16 19:05 Urine Urobilinogen 0.2 E.U./dL (0.2 - 1.0) 12/30/16 19:05 Ur Leukocyte Esterase NEGATIVE (NEGATIVE) 12/30/16 19:05 Urine RBC >100 /hpf (0-5) H 12/30/16 19:05 Urine WBC 0-2 /hpf (0-5) 12/30/16 19:05 Ur Epithelial Cells FEW /lpf (FEW) 12/30/16 19:05 Urine Bacteria NONE SEEN /hpf (NONE SEEN) 12/30/16 19:05 Helicobacter pylori Ab NEGATIVE (NEGATIVE) 01/01/17 12:00 - Physical Exam Vitals and I&O: Vital Signs Temp 97.9 F 01/04/17 16:00 Pulse 76 01/04/17 16:00 Resp 18 01/04/17 16:00 BP 93/43 01/04/17 16:00 Pulse Ox 98 01/04/17 16:00 Intake & Output 01/04/17 01/04/17 01/05/17 06:59 18:59 06:59 Intake Total 1669.667 Balance 1669.667 Intake: Intake, IV Amount 949.667 D5-0.45NS 1,000 ml @ 70 949.667 mls/hr IV .[id number] ARIELLA Rx #:[id number] Oral 720 Other: # Voids 3 6 # Bowel Movements 0 Stool Characteristics Formed Formed Hard Active Medications: Current Medications Acetaminophen (Tylenol) 325 mg PO Q4HR PRN PRN Reason: Pain (Mild) Stop: 03/01/17 02:11 Albuterol/Ipratropium (Duoneb Neb) 3 ml HHN Q4HRT ARIELLA Stop: 03/01/17 18:59 Last Admin: 01/04/17 15:24 Dose: 3 ml Albuterol/Ipratropium (Duoneb Neb) 3 ml HHN Q4H PRN PRN Reason: Wheezing Stop: 03/01/17 16:44 Bisacodyl (Dulcolax 10 Mg Supp) 10 mg RC DAILY PRN PRN Reason: Constipation Stop: 03/01/17 02:11 Docusate Sodium (Colace) 100 mg PO BID [facility] Stop: 03/04/17 08:59 Last Admin: 01/04/17 17:28 Dose: 100 mg Finasteride (Proscar) 5 mg PO DAILY ARIELLA PRN Reason: Protocol Stop: 03/01/17 08:59 Last Admin: 01/04/17 08:41 Dose: 5 mg Fish Oil ([place] 3) 1,000 mg PO DAILY [facility] Stop: 03/01/17 08:59 Last Admin: 01/04/17 08:44 Dose: 1,000 mg Dextrose/Sodium Chloride (D5-0.45ns) 1,000 mls @ 70 mls/hr IV .[id number] [facility] Stop: 03/01/17 02:11 Last Admin: 01/04/17 07:44 Dose: 70 mls/hr Azithromycin 500 mg/ Sodium (Chloride) 250 mls @ 250 mls/hr IV Q24HR [facility]ELLA Stop: 03/01/17 13:59 Last Admin: 01/04/17 15:11 Dose: 250 mls/hr Ceftriaxone Sodium 1 gm/ (Sodium Chloride) 100 mls @ 100 mls/hr IV Q24HR [facility]ELLA Stop: 03/01/17 13:59 Last Admin: 01/04/17 13:52 Dose: 100 mls/hr Lorazepam (Ativan) 1 mg IVP Q2HR PRN; Protocol PRN Reason: Agitation Stop: 03/01/17 13:17 Last Admin: 01/03/17 03:18 Dose: 1 mg Metoclopramide HCl (Reglan) 5 mg IVP Q4HR PRN PRN Reason: Nausea / Vomiting Stop: 03/03/17 13:57 Pantoprazole Sodium (Protonix) 40 mg IVP Q24H [facility]ELLA Stop: 03/01/17 02:11 Last Admin: 01/04/17 06:00 Dose: 40 mg Risperidone (Risperdal) 0.5 mg PO BID ARIELLA PRN Reason: Protocol Stop: 03/01/17 08:59 Last Admin: 01/04/17 17:28 Dose: 0.5 mg General: No acute distress HEENT: Atraumatic Neck: Supple Cardiovascular: Regular rate Lungs: Clear to auscultation Abdomen: Bowel sounds, Soft, no Tender Assessment/Plan - Assessment Assessment: 1. ABD PAIN, NOW IMPROVED. 2. GERD WITH LARGE HIATAL HERNIA AND GASTRITIS PER EGD. 3. CONSTIPATION - PER CT. 4. HX MR. - Plan Plan: 1. PROTONIX. 2. REGLAN. 3. COLACE. 4. DIET SULY.
[2017-01-05] MEDS: Albuterol/Ipratropium Neb 3 ML AERS HHN SCH ×3 (02:52→11:24)
[2017-01-05 07:39] LABS: % BASOPHILS 0.6 % (0.0-2.0); % EOSINOPHILS 2.9 % (0.0-5.0); % LYMPHOCYTES 21.7 % (20.0-50.0); % NEUTROPHILS 65.8 % (40.0-80.0); HEMATOCRIT 42.7 % (39.0-49.0); HEMOGLOBIN 14.1 gm/dL (12.6-17.4); MEAN CELL VOLUME 88.8 fl (80-99); MEAN CORPUSCULAR HEMOGLOBIN 29.4 pg (27.0-31.0); MEAN CORPUSCULAR HGB CONC 33.1 pg (28.0-36.0); MEAN PLATELET VOLUME 7.1 fl; NEUTROPHILE ABSOLUTE 3.4 Th/cmm (1.8-8.0); PLATELET COUNT 281 Th/cmm (150-400); RED BLOOD COUNT 4.81 Mil/cmm (3.80-5.80); WHITE BLOOD COUNT 5.2 Th/cmm (4.8-10.8)
[2017-01-05 07:53] LABS: ALB/GLOB RATIO 1.2 (1.0-1.8); ALKALINE PHOSPHATASE 74 U/L (34-104); BILIRUBIN,TOTAL 1.1 mg/dL (0.3-1.0); BUN - UREA NITROGEN 15 mg/dL (7-25); CALCIUM SERUM 9.5 mg/dL (8.6-10.3); CARBON DIOXIDE 26.6 mEq/L (21.0-31.0); CHLORIDE 103 mEq/L (98-107); CREATININE - SERUM 0.5 mg/dL (0.7-1.3); GLUCOSE 96 mg/dL (70-105); POTASSIUM SERUM 3.6 mEq/L (3.5-5.1); SGOT 15 U/L (13-39); SGPT/ALT 15 U/L (7-52); SODIUM SERUM 131 mEq/L (136-145)
[2017-01-05] MEDS: Fish Oil 1,000 MG SGL PO SCH (10:47)
[2017-01-05] MEDS: Multivitamin w/ Minerals Tab PO SCH (10:48)
[2017-01-05] MEDS: cefTRIAXone 1 GM in Sodium Chloride 0.9% 100 ML IV SCH (14:19)
--- NOTE | 2017-01-05 19:50 | Discharge Summary ---
ADMITTING DIAGNOSES: 1. Abdominal pain. 2. Fecal impaction/constipation. 3. Mild hyponatremia/azotemia. 4. Large hiatal hernia. SECONDARY DIAGNOSES: Include: 1. Chronic encephalopathy, secondary to mental retardation. 2. History of benign prostatic hypertrophy. 3. Profound intellectual disability. 4. Spastic quadriplegia. 5. Legally blind. DISCHARGE DIAGNOSES: 1. Intractable abdominal pain, resolved. 2. Constipation, fecal impaction, resolved. 3. Diaphragmatic hiatal hernia, stable. 4. Azotemia, resolved. 5. Mild hyponatremia. 6. Left lung atelectasis. CONSULTANTS: Included Dr. Cade of GI and Dr. Nguyễn of Surgery. PROCEDURES: He had an outpatient CT scan of the abdomen done on 12/11/2016 showing large eventration versus hernia of the left hemidiaphragm containing the stomach and multiple loops of small and large bowel. A KUB done on 12/31/2016 showing copious amounts of stool. An abdominal ultrasound done on 01/02/2017 showing a very limited exam due to the body habitus. There is no definite intraluminal abnormality such as gallstones noted. There is a suggestion of minimal pericholecystic fluid. There was a repeat abdominal and pelvic CT on 01/02/2017 showing mildly dilated stool-filled large bowel suggesting changes associated with constipation, elevation of the left hemidiaphragm. Air-filled large bowel projects and extends into the left retrocardiac region and appears to be beneath the diaphragm. He underwent an EGD on 12/30/2016, showing [id number] 6 cm hiatal hernia, mild gastritis, status post biopsy and normal-appearing duodenum, status post biopsy. BRIEF HOSPITAL COURSE: A 71-year-old male who was transferred to the ER from a board and care giving the above-mentioned complaints, namely abdominal pain for a few days. The patient underwent an outpatient CT, which showed a large diaphragmatic/hiatal hernia and giving his symptoms, he was transferred to the ER, where he was noted to be in some pain, but objectively there were no major findings except for mild dehydration with a sodium of 134 and a BUN of 26. The patient was admitted for further management and workup. He underwent the above-mentioned diagnostics and Surgery was contacted. EGD was performed and the patient also was placed on IV fluids, IV PPI and supportive care. The patient tolerated the pureed diet well with no nausea, vomiting or obvious abdominal pain. He did have daily bowel movements and has remained stable vital sign lane and lab lane. Given that he responded well to conservative treatment, surgery was not considered at this time. The patient continues to do well with pureed bland diet and has had no other symptoms of constipation or ileus. DISCHARGE MEDICATIONS: Tylenol every 4 hours as needed for pain, docusate sodium 100 twice a day, Proscar 5 every day, [place]-3 every day, Reglan 10 mg before meal and at bedtime, multivitamins every day, Protonix 40 every day, Risperdal 0.5 twice a day and Dulcolax 5 mg every day as needed for moderate pain and lactulose 15 mL every day as needed for severe constipation. CONDITION ON DISCHARGE: Stable. DISPOSITION: The patient will be discharged back to [facility] and care under the care of Dr. Marcos. [facility]# [id number] [id number]
--- NOTE | 2017-01-05 20:31 | General Progress Note ---
Subjective - Review of Systems Service Date: 01/05/17 Subjective: DELAYED NOTE ENTRY. EVENTS NOTED. SULY ORAL DIET WELL. Objective - Results Result Diagrams: 01/05/17 06:55 01/05/17 06:55 Recent Labs: Laboratory Last Values WBC 5.2 Th/cmm (4.8-10.8) 01/05/17 06:55 RBC 4.81 Mil/cmm (3.80-5.80) 01/05/17 06:55 Hgb 14.1 gm/dL (12.6-17.4) 01/05/17 06:55 Hct 42.7 % (39.0-49.0) 01/05/17 06:55 MCV 88.8 fl (80-99) 01/05/17 06:55 MCH 29.4 pg (27.0-31.0) 01/05/17 06:55 MCHC Differential 33.1 pg (28.0-36.0) 01/05/17 06:55 RDW 13.0 % (11.5-20.0) 01/05/17 06:55 Plt Count 281 Th/cmm (150-400) 01/05/17 06:55 MPV 7.1 fl 01/05/17 06:55 Neutrophils % 65.8 % (40.0-80.0) 01/05/17 06:55 Band Neutrophils % 5 % (0-10) 12/31/16 07:45 Lymphocytes % 21.7 % (20.0-50.0) 01/05/17 06:55 Monocytes % 9.0 % (2.0-10.0) 01/05/17 06:55 Eosinophils % 2.9 % (0.0-5.0) 01/05/17 06:55 Basophils % 0.6 % (0.0-2.0) 01/05/17 06:55 Neutrophils (Manual) 74 % (40-80) 12/31/16 07:45 Lymphocytes 16 % (20-50) L 12/31/16 07:45 Monocytes 3 % (2-10) 12/31/16 07:45 Eosinophils 2 % (0-5) 12/31/16 07:45 Platelet Estimate ADEQUATE (NORMAL) 12/31/16 07:45 Platelet Morphology GIANT PLATELETS SEEN (NORMAL) 12/31/16 07:45 RBC Morph Micro Appear NORMAL (NORMAL) 12/31/16 07:45 PT 10.3 SECONDS (9.5-11.5) 01/01/17 06:04 INR 1.04 (0.5-1.4) 01/01/17 06:04 PTT (Actin FS) 27.2 SECONDS (26.0-38.0) 01/01/17 06:04 Sodium 131 mEq/L (136-145) L 01/05/17 06:55 Potassium 3.6 mEq/L (3.5-5.1) 01/05/17 06:55 Chloride 103 mEq/L (98-107) 01/05/17 06:55 Carbon Dioxide 26.6 mEq/L (21.0-31.0) 01/05/17 06:55 Anion Gap 5.0 (7.0-16.0) L 01/05/17 06:55 BUN 15 mg/dL (7-25) 01/05/17 06:55 Creatinine 0.5 mg/dL (0.7-1.3) L 01/05/17 06:55 Est GFR ( Amer) > 60.0 ml/min (>90) 01/05/17 06:55 Est GFR (Non-Af Amer) > 60.0 ml/min 01/05/17 06:55 BUN/Creatinine Ratio 30.0 01/05/17 06:55 Glucose 96 mg/dL (70-105) 01/05/17 06:55 Calcium 9.5 mg/dL (8.6-10.3) 01/05/17 06:55 Magnesium 2.0 mg/dL (1.9-2.7) 01/05/17 06:55 Total Bilirubin 1.1 mg/dL (0.3-1.0) H 01/05/17 06:55 AST 15 U/L (13-39) 01/05/17 06:55 ALT 15 U/L (7-52) 01/05/17 06:55 Alkaline Phosphatase 74 U/L (34-104) 01/05/17 06:55 Total Protein 7.2 gm/dL (6.0-8.3) 01/05/17 06:55 Albumin 3.9 gm/dL (4.2-5.5) L 01/05/17 06:55 Globulin 3.3 gm/dL 01/05/17 06:55 Albumin/Globulin Ratio 1.2 (1.0-1.8) 01/05/17 06:55 Urine Source CES[place] 12/30/16 19:05 Urine Color STRAW 12/30/16 19:05 Urine Clarity HAZY (CLEAR) 12/30/16 19:05 Urine pH 7.5 12/30/16 19:05 Ur Specific [place] 1.015 (1.005-1.030) 12/30/16 19:05 Urine Protein NEGATIVE mg/dL (NEGATIVE) 12/30/16 19:05 Urine Glucose (UA) NEGATIVE mg/dL (NEGATIVE) 12/30/16 19:05 Urine Ketones NEGATIVE mg/dL (NEGATIVE) 12/30/16 19:05 Urine Blood LARGE (NEGATIVE) H 12/30/16 19:05 Urine Nitrate NEGATIVE (NEGATIVE) 12/30/16 19:05 Urine Bilirubin NEGATIVE (NEGATIVE) 12/30/16 19:05 Urine Urobilinogen 0.2 E.U./dL (0.2 - 1.0) 12/30/16 19:05 Ur Leukocyte Esterase NEGATIVE (NEGATIVE) 12/30/16 19:05 Urine RBC >100 /hpf (0-5) H 12/30/16 19:05 Urine WBC 0-2 /hpf (0-5) 12/30/16 19:05 Ur Epithelial Cells FEW /lpf (FEW) 12/30/16 19:05 Urine Bacteria NONE SEEN /hpf (NONE SEEN) 12/30/16 19:05 Helicobacter pylori Ab NEGATIVE (NEGATIVE) 01/01/17 12:00 - Physical Exam Vitals and I&O: Vital Signs Temp 98.2 F 01/04/17 20:00 Pulse 77 01/05/17 11:28 Resp 16 01/05/17 11:28 BP 142/89 01/05/17 15:00 Pulse Ox 95 01/05/17 11:28 Intake & Output 01/05/17 01/05/17 01/06/17 06:59 18:59 06:59 Other: Stool Characteristics Formed Formed General: No acute distress HEENT: Atraumatic Neck: Supple Cardiovascular: Regular rate Lungs: Clear to auscultation Abdomen: Bowel sounds - Procedures Procedures: Procedures Procedure Code Date EGD BIOPSY SINGLE/MULTIPLE 80314 12/30/16 EXCISION OF DUODENUM, ENDO, DIAGN [id number] 12/30/16 EXCISION OF STOMACH, ENDO, DIAGN [id number] 12/30/16 Assessment/Plan - Assessment Assessment: 1. ABD PAIN, NOW IMPROVED. 2. GERD WITH LARGE HIATAL HERNIA AND GASTRITIS PER EGD. 3. CONSTIPATION - PER CT. 4. HX MR. - Plan Plan: 1. PROTONIX. 2. REGLAN. 3. COLACE. 4. DIET SULY. GI SIDDIQI STABLE.
== END 2017-01-05 15:30 | DRG 391 ==
LOC: ER 15:40 → MSI 20:30
PROVIDERS: ADMIT Internal Medicine; ATTEND Internal Medicine
PROC: 0DB68ZX Excision of Stomach, Via Natural or Artificial Opening Endoscopic, Diagnostic (ICD-10-PCS; principal; 2017-01-01)
PROC: 0DB98ZX Excision of Duodenum, Via Natural or Artificial Opening Endoscopic, Diagnostic (ICD-10-PCS; 2017-01-01)
DX: K29.70 Gastritis, unspecified, without bleeding (principal); G82.50 Quadriplegia, unspecified; G93.40 Encephalopathy, unspecified; E87.1 Hypo-osmolality and hyponatremia; F73 Profound intellectual disabilities; E46 Unspecified protein-calorie malnutrition; J98.11 Atelectasis; K44.9 Diaphragmatic hernia without obstruction or gangrene; N40.0 Benign prostatic hyperplasia without lower urinary tract symptoms; H54.8 Legal blindness, as defined in USA; R31.9 Hematuria, unspecified; K21.9 Gastro-esophageal reflux disease without esophagitis; K59.00 Constipation, unspecified
CPT/HCPCS: 36415-UA; 71010-TC; 74000-TC; 76705-TC; 80048-TC; 80053-TC; 81001-TC; 83735-TC; 85007-TC; 85025-TC; 85027-TC; 85610-TC; 85730-TC; 87338-TC; 93005; 94640; 94760; C9113; J0456; J0696; J2060; J2704; J2765; Z7610